=== PATIENT | male | born 1955 | race African-American/Black ===

== ENCOUNTER 2021-11-15 05:53 | Inpatient (IN) ==
[2021-09-22 13:04] LABS: Basophils # 0.1 10*3/uL (0.0-0.2); Basophils % 0.6 % (0.0-0.8); Eosinophils # 0.9 10*3/uL (0.0-0.87); Eosinophils % 8.7 % (0.00-10.9); Hematocrit 34.2 VOL% (42.0-52.0); Hemoglobin 10.9 GM/DL (14.0-18.0); Immature Granulocytes % 0.7 %; Immature Granulocytes Absolute 0.07 #; Lymphocytes # 3.1 10*3/uL (1.4-4.0); Lymphocytes % 30.3 % (21.2-54.2); Mean Corpuscular HGB Conc 31.9 GM/DL (32-36); Mean Corpuscular Volume 96.3 FL (87-102); Mean Platelet Volume 11.4 FL (9.6-12.0); Neutrophils % 52.7 % (38.7-73.9); Platelet Count 234 T/CUMM (130-400); Red Blood Count 3.55 MC/CUMM (3.8-5.5); Red Cell Distribution Width 12.7 % (9.3-17.3); White Blood Count 10.3 T/CUMM (4-12)
[2021-09-22 13:27] LABS: Alanine Aminotransferase 27 U/L (16-61); Albumin 3.8 G/DL (3.4-5.0); Alkaline Phosphatase 70 U/L (45-117); Aspartate Amino Transferase 22 U/L (0-37); Bilirubin,Total < 0.39 MG/DL (0.20-1.00); Blood Urea Nitrogen 32 MG/DL (7-18); Calcium 9.5 MG/DL (8.5-10.1); Carbon Dioxide 27 MMOL/L (21-32); Estimated Glom Filtration Rate 97 ML/MIN; Glucose 89 MG/DL (74-106); Osmolality,Calculated 282.5 MOS/KG (273-304); Sodium 139 MMOL/L (136-145); Total Protein 8.6 G/DL (6.4-8.2)
[2021-11-07 11:11] LABS: Basophils % 0.3 % (0.0-0.8); Eosinophils # 0.4 10*3/uL (0.0-0.87); Eosinophils % 3.5 % (0.00-10.9); Hematocrit 34.7 VOL% (42.0-52.0); Hemoglobin 10.9 GM/DL (14.0-18.0); Immature Granulocytes % 0.7 %; Immature Granulocytes Absolute 0.08 #; Lymphocytes # 3.1 10*3/uL (1.4-4.0); Lymphocytes % 26.5 % (21.2-54.2); Mean Corpuscular HGB Conc 31.4 GM/DL (32-36); Mean Corpuscular Volume 95.6 FL (87-102); Mean Platelet Volume 10.9 FL (9.6-12.0); Monocytes % 7.9 % (1.7-12.7); Neutrophils % 61.1 % (38.7-73.9); Platelet Count 229 T/CUMM (130-400); Red Blood Count 3.63 MC/CUMM (3.8-5.5); Red Cell Distribution Width 13.2 % (9.3-17.3); White Blood Count 11.5 T/CUMM (4-12)
[2021-11-07 11:29] LABS: Alanine Aminotransferase 31 U/L (16-61); Albumin 3.4 G/DL (3.4-5.0); Alkaline Phosphatase 91 U/L (45-117); Aspartate Amino Transferase 17 U/L (0-37); Bilirubin,Total < 0.39 MG/DL (0.20-1.00); Blood Urea Nitrogen 25 MG/DL (7-18); Calcium 9.3 MG/DL (8.5-10.1); Carbon Dioxide 29 MMOL/L (21-32); Estimated Glom Filtration Rate 124 ML/MIN; Glucose 98 MG/DL (74-106); Osmolality,Calculated 280.5 MOS/KG (273-304); Potassium 4.6 MMOL/L (3.5-5.1); Sodium 139 MMOL/L (136-145); Total Protein 8.1 G/DL (6.4-8.2)
[~2021-11-15 05:53] MED LIST: ACETAMINOPHEN 500 MG TABLET PO ONE; FAMOTIDINE 20 MG TABLET PO ONE; GABAPENTIN 400 MG CAPSULE PO ONE; cefTRIAXone 1,000 MG in SODIUM CHLORIDE 0.9% 100 ML IV ONE
[2021-11-15] MEDS ORDERED: DEXAMETHASONE 4 MG/1 ML VIAL ONE ×2 (06:35→06:56)
[2021-11-15] MEDS ORDERED: ONDANSETRON 4 MG/2 ML VIAL ONE (06:35)
[2021-11-15] MEDS ORDERED: MIDAZOLAM 2 MG/2 ML VIAL ONE (06:35)
[2021-11-15] MEDS ORDERED: fentaNYL 100 MCG/2 ML VIAL ONE (06:35)
[2021-11-15] MEDS ORDERED: LIDOCAINE 2% 5 ML VIAL ONE (06:35)
[2021-11-15] MEDS ORDERED: ROCURONIUM 50 MG/5 ML VIAL IV ONE ×2 (06:35→11:49)
[2021-11-15] MEDS ORDERED: propofoL 200 MG/20 ML VIAL IV ONE (06:35)
[2021-11-15] MEDS ORDERED: ROPIVACAINE 0.5% 30 ML VIAL ONE ×2 (06:38→06:53)
[2021-11-15] MEDS: LACTATED RINGERS 1,000 ML IV SCH (06:53)
[2021-11-15] MEDS: ALVIMOPAN 12 MG CAPSULE PO SCH ×3 (06:55→20:44)
[2021-11-15] MEDS ORDERED: cefTRIAXone 1,000 MG in SODIUM CHLORIDE 0.9% 100 ML IV ONE (07:00)
[2021-11-15] MEDS ORDERED: FAMOTIDINE 20 MG TABLET PO ONE (07:00)
[2021-11-15] MEDS ORDERED: GABAPENTIN 400 MG CAPSULE PO ONE (07:00)
[2021-11-15] MEDS ORDERED: ePHEDrine 50 MG/ML VIAL ONE (08:05)
[2021-11-15 09:38] LABS: Bilirubin,Urine Negative (Negative); Blood, Urine Negative (Negative); Glucose,Urine (UA) Negative (Negative); Ketones,Urine Negative (Negative); Nitrite,Urine Negative (Negative); Protein,Urine Negative; Urine Appearance CLEAR (Clear); Urine Color Yellow (Yellow); Urine Specific Gravity 1.015 (1.001-1.035); Urine Urobilinogen < 2.0 EU/DL (<2.0)
[2021-11-15] MEDS ORDERED: GLYCOPYRROLATE 0.4 MG/2 ML VIAL ONE (11:49)
[2021-11-15] MEDS ORDERED: NEOSTIGMINE 10 MG/10 ML VIAL ONE (11:49)
[2021-11-15] MEDS ORDERED: SEVOFLURANE 1 UNIT/15 MINUTE INH ONE ×5 (11:50→12:54)
[2021-11-15] MEDS ORDERED: oxyCODONE/ACETAMINOPHEN 5-325 MG TABLET PO PRN (12:48)
[2021-11-15] MEDS ORDERED: PROMETHAZINE 25 MG/1 ML VIAL IM PRN (12:48)
[2021-11-15] MEDS ORDERED: diphenhydrAMINE 50 MG/1 ML VIAL IV PRN (12:48)
[2021-11-15] MEDS ORDERED: HYDROmorphone 2 MG/1 ML VIAL IV PRN ×2 (12:48→13:11)
[2021-11-15] MEDS ORDERED: MAGNESIUM HYDROXIDE SUSP 30 ML UDCUP PO PRN (12:48)
[2021-11-15] MEDS ORDERED: ONDANSETRON 4 MG/2 ML VIAL IV PRN ×2 (12:48→13:11)
[2021-11-15] MEDS ORDERED: ALBUTEROL/IPRATROPIUM 3 ML NEB RESP TX PRN (12:51)
[2021-11-15] MEDS: SODIUM CHLORIDE 0.9% 1,000 ML IV SCH ×3 (14:15→23:40)
[2021-11-15] MEDS ORDERED: ALBUTEROL 2.5 MG/3 ML NEB RESP TX PRN (14:23)
[2021-11-15] MEDS ORDERED: FUROSEMIDE 20 MG/2 ML VIAL IV ONE (15:26)
[2021-11-15 15:36] LABS: Basophils % 0.2 % (0.0-0.8); Eosinophils % 0.1 % (0.00-10.9); Hematocrit 37.4 VOL% (42.0-52.0); Hemoglobin 11.3 GM/DL (14.0-18.0); Immature Granulocytes % 1.1 %; Immature Granulocytes Absolute 0.21 #; Lymphocytes # 1.7 10*3/uL (1.4-4.0); Lymphocytes % 8.8 % (21.2-54.2); Mean Corpuscular HGB Conc 30.2 GM/DL (32-36); Mean Corpuscular Volume 98.4 FL (87-102); Mean Platelet Volume 11.1 FL (9.6-12.0); Monocytes % 3.3 % (1.7-12.7); Neutrophils % 86.5 % (38.7-73.9); Platelet Count 212 T/CUMM (130-400); Red Cell Distribution Width 13.3 % (9.3-17.3); White Blood Count 18.8 T/CUMM (4-12)
[2021-11-15 15:52] LABS: Calcium 9.1 MG/DL (8.5-10.1); Potassium 5.5 MMOL/L (3.5-5.1)
[2021-11-15] MEDS: ALBUTEROL/IPRATROPIUM 3 ML NEB RESP TX SCH ×3 (16:05→23:34)
[2021-11-15] MEDS: ACETAMINOPHEN 325 MG TABLET PO SCH ×2 (16:26→19:29)
[2021-11-15] MEDS: OXYBUTYNIN 5 MG TABLET PO SCH ×2 (16:51→20:44)
[2021-11-15] MEDS: FAMOTIDINE 20 MG TABLET PO SCH (20:44)
[2021-11-15] MEDS: DOCUSATE SODIUM 100 MG CAPSULE PO SCH (20:44)
[2021-11-16] MEDS: ACETAMINOPHEN 325 MG TABLET PO SCH ×4 (01:39→20:12)
[2021-11-16] MEDS: ALBUTEROL/IPRATROPIUM 3 ML NEB RESP TX SCH ×6 (03:28→23:17)
[2021-11-16 04:46] LABS: Basophils % 0.1 % (0.0-0.8); Eosinophils % 0.1 % (0.00-10.9); Immature Granulocytes % 0.8 %; Immature Granulocytes Absolute 0.15 #; Lymphocytes # 2.6 10*3/uL (1.4-4.0); Lymphocytes % 13.1 % (21.2-54.2); Mean Corpuscular HGB Conc 31.3 GM/DL (32-36); Mean Corpuscular Volume 96.4 FL (87-102); Mean Platelet Volume 10.5 FL (9.6-12.0); Monocytes % 8.7 % (1.7-12.7); Neutrophils % 77.2 % (38.7-73.9); Platelet Count 255 T/CUMM (130-400); Red Blood Count 3.32 MC/CUMM (3.8-5.5); Red Cell Distribution Width 13.4 % (9.3-17.3); White Blood Count 19.5 T/CUMM (4-12)
[2021-11-16 05:10] LABS: Calcium 8.8 MG/DL (8.5-10.1); Osmolality,Calculated 276.8 MOS/KG (273-304); Potassium 4.5 MMOL/L (3.5-5.1)
[2021-11-16] MEDS: SODIUM CHLORIDE 0.9% 1,000 ML IV SCH (05:28)
[2021-11-16] MEDS: LACTATED RINGERS 1,000 ML IV SCH (05:36)
[2021-11-16] MEDS: FAMOTIDINE 20 MG TABLET PO SCH ×2 (08:52→20:12)
[2021-11-16] MEDS: ALVIMOPAN 12 MG CAPSULE PO SCH ×2 (08:52→20:11)
[2021-11-16] MEDS: amLODIPine 10 MG TABLET PO SCH (08:52)
[2021-11-16] MEDS: DOCUSATE SODIUM 100 MG CAPSULE PO SCH ×2 (08:52→20:12)
[2021-11-16] MEDS: OXYBUTYNIN 5 MG TABLET PO SCH ×3 (08:52→20:12)
[2021-11-16] MEDS: carvediloL 6.25 MG TABLET PO SCH ×2 (08:55→20:12)
[2021-11-16] MEDS ORDERED: lisinopriL 20 MG TABLET PO SCH (09:00)
[2021-11-16] MEDS ORDERED: cefTRIAXone 1,000 MG in SODIUM CHLORIDE 0.9% 100 ML IV SCH (13:00)
[2021-11-17] MEDS: ACETAMINOPHEN 325 MG TABLET PO SCH ×2 (01:52→06:05)
[2021-11-17 05:45] LABS: Basophils % 0.3 % (0.0-0.8); Eosinophils # 0.3 10*3/uL (0.0-0.87); Eosinophils % 2.5 % (0.00-10.9); Hematocrit 31.8 VOL% (42.0-52.0); Hemoglobin 9.8 GM/DL (14.0-18.0); Immature Granulocytes % 0.6 %; Immature Granulocytes Absolute 0.08 #; Lymphocytes % 21.9 % (21.2-54.2); Mean Corpuscular HGB Conc 30.8 GM/DL (32-36); Mean Corpuscular Volume 96.7 FL (87-102); Mean Platelet Volume 10.9 FL (9.6-12.0); Monocytes % 9.2 % (1.7-12.7); Neutrophils % 65.5 % (38.7-73.9); Platelet Count 241 T/CUMM (130-400); Red Blood Count 3.29 MC/CUMM (3.8-5.5); Red Cell Distribution Width 13.3 % (9.3-17.3); White Blood Count 13.9 T/CUMM (4-12)
[2021-11-17 05:58] LABS: Calcium 8.9 MG/DL (8.5-10.1); Potassium 4.4 MMOL/L (3.5-5.1)
[2021-11-17] MEDS: ALBUTEROL/IPRATROPIUM 3 ML NEB RESP TX SCH (07:15)
[2021-11-17 08:27] VITALS: BP 126/64
[2021-11-17] MEDS: carvediloL 6.25 MG TABLET PO SCH (09:40)
[2021-11-17] MEDS: amLODIPine 10 MG TABLET PO SCH (09:40)
[2021-11-17] MEDS: DOCUSATE SODIUM 100 MG CAPSULE PO SCH (09:40)
[2021-11-17] MEDS: ALVIMOPAN 12 MG CAPSULE PO SCH (09:40)
[2021-11-17] MEDS: OXYBUTYNIN 5 MG TABLET PO SCH (09:40)
[2021-11-17] MEDS: FAMOTIDINE 20 MG TABLET PO SCH (09:40)
== END 2021-11-17 11:15 | disposition home or self-care (01) | DRG 708 ==
LOC: N.OR 05:53 → N.SDSINP 05:55 → N.3E 14:15
PROVIDERS: ADMIT Surgery; ATTEND Surgery

== ENCOUNTER 2021-12-05 00:05 | Inpatient (IN) ==
[2021-12-05 08:01] LABS: Basophils % 0.2 % (0.0-0.8); Eosinophils % 0.5 % (0.00-10.9); Hematocrit 33.4 VOL% (42.0-52.0); Hemoglobin 10.7 GM/DL (14.0-18.0); Immature Granulocytes % 0.5 %; Immature Granulocytes Absolute 0.03 #; Lymphocytes # 1.4 10*3/uL (1.4-4.0); Lymphocytes % 21.5 % (21.2-54.2); Neutrophils % 68.3 % (38.7-73.9); Platelet Count 234 T/CUMM (130-400); Red Blood Count 3.63 MC/CUMM (3.8-5.5); Red Cell Distribution Width 12.9 % (9.3-17.3); White Blood Count 6.5 T/CUMM (4-12)
[2021-12-05 08:05] LABS: Bilirubin,Urine Negative (Negative); Blood, Urine Moderate mg/dL (Negative); Glucose,Urine (UA) Negative (Negative); Ketones,Urine 20 mg/dL (Negative); Mucus,Urine Occasional /LPF (Occasional); Nitrite,Urine Negative (Negative); Protein,Urine 100 MG/DL; RBC,Urine 16 /HPF (0-4); Squamous Epithelial Cell,Urine Occasional /HPF (0-10); Urine Appearance CLEAR (Clear); Urine Color Yellow (Yellow); Urine Specific Gravity 1.018 (1.001-1.035)
[2021-12-05 08:19] LABS: Barbiturates Screen,Urine Negative (Negative); Benzodiazepines Screen,Urine Negative (Negative); Cannabinoid Screen,Urine Negative (Negative); Opiate Screen,Urine Negative (Negative); Phencyclidine Screen,Urine Negative (Negative)
[2021-12-05 08:26] LABS: Albumin 3.2 G/DL (3.4-5.0); Bilirubin,Total 0.5 MG/DL (0.20-1.00); Calcium 9.4 MG/DL (8.5-10.1); Osmolality,Calculated 269.1 MOS/KG (273-304); Potassium 3.8 MMOL/L (3.5-5.1); Total Protein 9.3 G/DL (6.4-8.2)
[2021-12-05] MEDS ORDERED: ACETAMINOPHEN 325 MG TABLET PO PRN (10:00)
[2021-12-05] MEDS ORDERED: hydrALAZINE 20 MG/1 ML VIAL IV PRN (10:00)
[2021-12-05] MEDS ORDERED: ONDANSETRON 4 MG/2 ML VIAL IV PRN (10:00)
[2021-12-05] MEDS ORDERED: DEXTROSE 10% 250 ML BAG IV PRN (10:00)
[2021-12-05] MEDS ORDERED: GLUCAGON 1 MG VIAL IM PRN (10:00)
[2021-12-05] MEDS ORDERED: ZIPRASIDONE 20 MG/1 ML VIAL IM ONE (10:55)
[2021-12-05 11:09] LABS: Ferritin 657.5 ng/mL (26-388)
[2021-12-05 11:51] LABS: % Iron Saturation 12.1 % (18-50)
[2021-12-05] MEDS ORDERED: ZIPRASIDONE 20 MG/1 ML VIAL IM STA (11:54)
[2021-12-05] MEDS ORDERED: HALOPERIDOL 5 MG/ML AMP IM STA (12:08)
[2021-12-05] MEDS ORDERED: LORazepam 2 MG/1 ML VIAL IM STA (12:08)
[2021-12-05] MEDS ORDERED: diphenhydrAMINE 50 MG/1 ML VIAL IM STA (12:08)
[2021-12-05 12:15] LABS: Folate 17.88 NG/ML (5.38-24.0)
[2021-12-05] MEDS ORDERED: ALBUTEROL 2.5 MG/3 ML NEB RESP TX PRN (13:00)
[2021-12-05] MEDS: ENOXAPARIN 40 MG/0.4 ML SYRINGE SUBCUT SCH (13:30)
[2021-12-05] MEDS: cefTRIAXone 1,000 MG in SODIUM CHLORIDE 0.9% 100 ML IV SCH (13:30)
[2021-12-05] MEDS: HALOPERIDOL 5 MG/ML AMP IM PRN (19:41)
[2021-12-05] MEDS: ZIPRASIDONE 20 MG/1 ML VIAL IM PRN (19:41)
[2021-12-05] MEDS: DOCUSATE SODIUM 100 MG CAPSULE PO SCH (21:19)
[2021-12-05] MEDS: FAMOTIDINE 20 MG TABLET PO SCH (21:20)
[2021-12-05] MEDS: carvediloL 6.25 MG TABLET PO SCH (21:20)
[2021-12-05] MEDS: ASCORBIC ACID 500 MG TABLET PO SCH (21:20)
[2021-12-06 04:05] LABS: Basophils % 0.4 % (0.0-0.8); Eosinophils # 0.2 10*3/uL (0.0-0.87); Eosinophils % 3.5 % (0.00-10.9); Hematocrit 33.7 VOL% (42.0-52.0); Hemoglobin 10.5 GM/DL (14.0-18.0); Immature Granulocytes % 0.6 %; Immature Granulocytes Absolute 0.04 #; Lymphocytes # 2.5 10*3/uL (1.4-4.0); Lymphocytes % 35.5 % (21.2-54.2); Mean Corpuscular HGB Conc 31.2 GM/DL (32-36); Mean Corpuscular Volume 91.8 FL (87-102); Mean Platelet Volume 10.7 FL (9.6-12.0); Monocytes % 8.5 % (1.7-12.7); Neutrophils % 51.5 % (38.7-73.9); Platelet Count 280 T/CUMM (130-400); Red Blood Count 3.67 MC/CUMM (3.8-5.5); Red Cell Distribution Width 12.9 % (9.3-17.3); White Blood Count 6.9 T/CUMM (4-12)
[2021-12-06] MEDS: HALOPERIDOL 5 MG/ML AMP IM PRN ×2 (04:14→11:42)
[2021-12-06 04:29] LABS: Albumin 3.2 G/DL (3.4-5.0); Bilirubin,Total 1.3 MG/DL (0.20-1.00); Ferritin 674.8 ng/mL (26-388); Osmolality,Calculated 278.3 MOS/KG (273-304); Potassium 3.9 MMOL/L (3.5-5.1); Risk Ratio 4.74; Total Protein 9.2 G/DL (6.4-8.2); VLDL Cholesterol 18.8 MG/DL
[2021-12-06] MEDS: ZIPRASIDONE 20 MG/1 ML VIAL IM PRN ×2 (07:51→21:30)
[2021-12-06] MEDS ORDERED: LORazepam 2 MG/1 ML VIAL IV ONE (08:12)
[2021-12-06] MEDS ORDERED: lisinopriL 20 MG TABLET PO SCH (09:00)
[2021-12-06] MEDS: DOCUSATE SODIUM 100 MG CAPSULE PO SCH ×2 (09:26→21:30)
[2021-12-06] MEDS: carvediloL 6.25 MG TABLET PO SCH ×2 (09:45→21:30)
[2021-12-06] MEDS: amLODIPine 10 MG TABLET PO SCH (09:45)
[2021-12-06] MEDS: DEXAMETHASONE 4 MG/1 ML VIAL IV SCH (09:45)
[2021-12-06] MEDS: FAMOTIDINE 20 MG TABLET PO SCH ×2 (09:45→21:30)
[2021-12-06] MEDS: PANTOPRAZOLE 40 MG TABLET PO SCH (09:45)
[2021-12-06] MEDS: ZINC GLUCONATE 50 MG TABLET PO SCH (09:55)
[2021-12-06] MEDS: CHOLECALCIFEROL 1,000 UNIT TABLET PO SCH (09:55)
[2021-12-06] MEDS: ASCORBIC ACID 500 MG TABLET PO SCH ×2 (09:55→21:30)
[2021-12-06] MEDS: ENOXAPARIN 40 MG/0.4 ML SYRINGE SUBCUT SCH (11:35)
[2021-12-06] MEDS: cefTRIAXone 1,000 MG in SODIUM CHLORIDE 0.9% 100 ML IV SCH (11:43)
[2021-12-06] MEDS ORDERED: LORazepam 2 MG/1 ML VIAL ONE (16:43)
[2021-12-06] MEDS: FERROUS SULFATE 325 MG TABLET PO SCH (21:30)
[2021-12-07] MEDS: HALOPERIDOL 5 MG/ML AMP IM PRN ×2 (01:23→08:13)
[2021-12-07] MEDS ORDERED: LORazepam 2 MG/1 ML VIAL IM ONE (02:26)
[2021-12-07] MEDS ORDERED: LORazepam 2 MG/1 ML VIAL ONE (02:27)
[2021-12-07] MEDS ORDERED: LORazepam 2 MG/1 ML VIAL IV ONE (02:27)
[2021-12-07] MEDS ORDERED: SODIUM CHLORIDE 0.9% 500 ML IV ONE (03:35)
[2021-12-07 04:05] LABS: Basophils % 0.1 % (0.0-0.8); Eosinophils % 0.1 % (0.00-10.9); Hematocrit 31.3 VOL% (42.0-52.0); Hemoglobin 10.1 GM/DL (14.0-18.0); Immature Granulocytes % 1.4 %; Immature Granulocytes Absolute 0.12 #; Lymphocytes # 1.5 10*3/uL (1.4-4.0); Lymphocytes % 17.2 % (21.2-54.2); Mean Corpuscular HGB Conc 32.3 GM/DL (32-36); Mean Corpuscular Volume 92.1 FL (87-102); Mean Platelet Volume 10.7 FL (9.6-12.0); Monocytes % 8.4 % (1.7-12.7); Neutrophils % 72.8 % (38.7-73.9); Platelet Count 297 T/CUMM (130-400); Red Cell Distribution Width 13.2 % (9.3-17.3); White Blood Count 8.5 T/CUMM (4-12)
[2021-12-07 04:34] LABS: Albumin 2.9 G/DL (3.4-5.0); Bilirubin,Total 0.5 MG/DL (0.20-1.00); Calcium 8.8 MG/DL (8.5-10.1); Osmolality,Calculated 283.3 MOS/KG (273-304); Total Protein 8.4 G/DL (6.4-8.2)
[2021-12-07] MEDS ORDERED: SODIUM CHLORIDE 0.9% 1,000 ML IV SCH (08:30)
[2021-12-07] MEDS: amLODIPine 10 MG TABLET PO SCH (10:00)
[2021-12-07] MEDS: DOCUSATE SODIUM 100 MG CAPSULE PO SCH ×2 (10:06→21:55)
[2021-12-07] MEDS: ASCORBIC ACID 500 MG TABLET PO SCH ×2 (10:13→21:55)
[2021-12-07] MEDS: FERROUS SULFATE 325 MG TABLET PO SCH ×2 (10:13→21:53)
[2021-12-07] MEDS: carvediloL 6.25 MG TABLET PO SCH ×2 (10:13→21:53)
[2021-12-07] MEDS: FAMOTIDINE 20 MG TABLET PO SCH ×2 (10:14→21:53)
[2021-12-07] MEDS: CHOLECALCIFEROL 1,000 UNIT TABLET PO SCH (10:14)
[2021-12-07] MEDS: PANTOPRAZOLE 40 MG TABLET PO SCH (10:14)
[2021-12-07] MEDS: ZINC GLUCONATE 50 MG TABLET PO SCH (10:14)
[2021-12-07] MEDS: DEXAMETHASONE 4 MG/1 ML VIAL IV SCH (10:15)
[2021-12-07] MEDS: cefTRIAXone 1,000 MG in SODIUM CHLORIDE 0.9% 100 ML IV SCH (10:17)
[2021-12-07] MEDS: ENOXAPARIN 40 MG/0.4 ML SYRINGE SUBCUT SCH ×3 (10:17→10:33)
[2021-12-07] MEDS: HALOPERIDOL 1 MG TABLET PO SCH (21:54)
[2021-12-07] MEDS: ESCITALOPRAM 10 MG TABLET PO SCH (21:55)
[2021-12-08] MEDS ORDERED: LORazepam 2 MG/1 ML VIAL IV ONE ×2 (00:51→22:41)
[2021-12-08] MEDS: HALOPERIDOL 5 MG/ML AMP IM PRN (05:08)
[2021-12-08 08:45] LABS: Basophils % 0.2 % (0.0-0.8); Eosinophils % 0.2 % (0.00-10.9); Hematocrit 31.9 VOL% (42.0-52.0); Hemoglobin 10.4 GM/DL (14.0-18.0); Immature Granulocytes % 0.9 %; Immature Granulocytes Absolute 0.11 #; Lymphocytes # 3.1 10*3/uL (1.4-4.0); Lymphocytes % 24.1 % (21.2-54.2); Mean Corpuscular HGB Conc 32.6 GM/DL (32-36); Mean Corpuscular Volume 90.6 FL (87-102); Mean Platelet Volume 10.1 FL (9.6-12.0); Monocytes % 9.6 % (1.7-12.7); Platelet Count 328 T/CUMM (130-400); Red Blood Count 3.52 MC/CUMM (3.8-5.5); Red Cell Distribution Width 13.2 % (9.3-17.3); White Blood Count 12.7 T/CUMM (4-12)
[2021-12-08 09:05] LABS: Calcium 8.7 MG/DL (8.5-10.1); Osmolality,Calculated 283.5 MOS/KG (273-304); Potassium 3.7 MMOL/L (3.5-5.1)
[2021-12-08] MEDS: DOCUSATE SODIUM 100 MG CAPSULE PO SCH ×2 (10:17→20:35)
[2021-12-08] MEDS: carvediloL 6.25 MG TABLET PO SCH ×2 (10:17→20:35)
[2021-12-08] MEDS: amLODIPine 10 MG TABLET PO SCH (10:18)
[2021-12-08] MEDS: DEXAMETHASONE 4 MG/1 ML VIAL IV SCH (10:18)
[2021-12-08] MEDS: ZINC GLUCONATE 50 MG TABLET PO SCH (10:18)
[2021-12-08] MEDS: PANTOPRAZOLE 40 MG TABLET PO SCH (10:18)
[2021-12-08] MEDS: FERROUS SULFATE 325 MG TABLET PO SCH ×2 (10:18→20:35)
[2021-12-08] MEDS: ASCORBIC ACID 500 MG TABLET PO SCH ×2 (10:18→20:35)
[2021-12-08] MEDS: FAMOTIDINE 20 MG TABLET PO SCH ×2 (10:18→20:35)
[2021-12-08] MEDS: CHOLECALCIFEROL 1,000 UNIT TABLET PO SCH (10:18)
[2021-12-08] MEDS: cefTRIAXone 1,000 MG in SODIUM CHLORIDE 0.9% 100 ML IV SCH (10:19)
[2021-12-08] MEDS: LACTATED RINGERS 1,000 ML IV SCH (11:44)
[2021-12-08] MEDS: ESCITALOPRAM 10 MG TABLET PO SCH (20:35)
[2021-12-08] MEDS: HALOPERIDOL 1 MG TABLET PO SCH (20:35)
[2021-12-09] MEDS: LACTATED RINGERS 1,000 ML IV SCH ×3 (01:16→18:20)
[2021-12-09 06:33] LABS: Basophils % 0.3 % (0.0-0.8); Eosinophils # 0.2 10*3/uL (0.0-0.87); Eosinophils % 2.4 % (0.00-10.9); Hematocrit 32.2 VOL% (42.0-52.0); Hemoglobin 10.4 GM/DL (14.0-18.0); Immature Granulocytes % 0.9 %; Immature Granulocytes Absolute 0.08 #; Lymphocytes # 2.7 10*3/uL (1.4-4.0); Lymphocytes % 29.3 % (21.2-54.2); Mean Corpuscular HGB Conc 32.3 GM/DL (32-36); Mean Corpuscular Volume 91.5 FL (87-102); Mean Platelet Volume 10.1 FL (9.6-12.0); Monocytes % 10.7 % (1.7-12.7); Neutrophils % 56.4 % (38.7-73.9); Platelet Count 308 T/CUMM (130-400); Red Blood Count 3.52 MC/CUMM (3.8-5.5); White Blood Count 9.2 T/CUMM (4-12)
[2021-12-09 07:00] LABS: Calcium 9.3 MG/DL (8.5-10.1); Osmolality,Calculated 276.7 MOS/KG (273-304); Potassium 3.6 MMOL/L (3.5-5.1)
[2021-12-09 07:11] LABS: Ferritin 547.9 ng/mL (26-388)
[2021-12-09] MEDS: FERROUS SULFATE 325 MG TABLET PO SCH ×2 (11:16→20:00)
[2021-12-09] MEDS: FAMOTIDINE 20 MG TABLET PO SCH ×2 (11:16→20:00)
[2021-12-09] MEDS: ZINC GLUCONATE 50 MG TABLET PO SCH (11:16)
[2021-12-09] MEDS: ASCORBIC ACID 500 MG TABLET PO SCH ×2 (11:16→20:00)
[2021-12-09] MEDS: PANTOPRAZOLE 40 MG TABLET PO SCH (11:16)
[2021-12-09] MEDS: amLODIPine 10 MG TABLET PO SCH (11:16)
[2021-12-09] MEDS: carvediloL 6.25 MG TABLET PO SCH ×2 (11:16→20:00)
[2021-12-09] MEDS: CHOLECALCIFEROL 1,000 UNIT TABLET PO SCH (11:16)
[2021-12-09] MEDS: DOCUSATE SODIUM 100 MG CAPSULE PO SCH ×2 (11:16→20:00)
[2021-12-09] MEDS: DEXAMETHASONE 4 MG/1 ML VIAL IV SCH (11:17)
[2021-12-09] MEDS: cefTRIAXone 1,000 MG in SODIUM CHLORIDE 0.9% 100 ML IV SCH (11:17)
[2021-12-09] MEDS: HALOPERIDOL 1 MG TABLET PO SCH (20:00)
[2021-12-09] MEDS: ESCITALOPRAM 10 MG TABLET PO SCH (20:00)
[2021-12-10] MEDS ORDERED: MELATONIN 3 MG TABLET PO PRN (00:29)
[2021-12-10] MEDS ORDERED: LORazepam 2 MG/1 ML VIAL IV PRN (02:35)
[2021-12-10] MEDS: LACTATED RINGERS 1,000 ML IV SCH (05:45)
[2021-12-10 05:53] LABS: Basophils % 0.1 % (0.0-0.8); Eosinophils # 0.1 10*3/uL (0.0-0.87); Eosinophils % 0.4 % (0.00-10.9); Hematocrit 28.7 VOL% (42.0-52.0); Hemoglobin 9.3 GM/DL (14.0-18.0); Immature Granulocytes Absolute 0.11 #; Lymphocytes # 3.2 10*3/uL (1.4-4.0); Lymphocytes % 28.2 % (21.2-54.2); Mean Corpuscular HGB Conc 32.4 GM/DL (32-36); Mean Corpuscular Volume 90.8 FL (87-102); Monocytes % 10.8 % (1.7-12.7); Neutrophils % 59.5 % (38.7-73.9); Platelet Count 324 T/CUMM (130-400); Red Blood Count 3.16 MC/CUMM (3.8-5.5); Red Cell Distribution Width 13.1 % (9.3-17.3); White Blood Count 11.4 T/CUMM (4-12)
[2021-12-10 06:11] LABS: Calcium 8.7 MG/DL (8.5-10.1); Osmolality,Calculated 277.5 MOS/KG (273-304); Potassium 3.6 MMOL/L (3.5-5.1)
[2021-12-10] MEDS ORDERED: MAGNESIUM SULF RIDER 2 GM/50 ML PREMIX IV ONE (07:21)
[2021-12-10] MEDS: amLODIPine 10 MG TABLET PO SCH (10:16)
[2021-12-10] MEDS: DOCUSATE SODIUM 100 MG CAPSULE PO SCH ×2 (10:16→22:10)
[2021-12-10] MEDS: carvediloL 6.25 MG TABLET PO SCH ×2 (10:16→22:10)
[2021-12-10] MEDS: CHOLECALCIFEROL 1,000 UNIT TABLET PO SCH (10:16)
[2021-12-10] MEDS: ASCORBIC ACID 500 MG TABLET PO SCH ×2 (10:16→22:10)
[2021-12-10] MEDS: PANTOPRAZOLE 40 MG TABLET PO SCH (10:16)
[2021-12-10] MEDS: ZINC GLUCONATE 50 MG TABLET PO SCH (10:16)
[2021-12-10] MEDS: FAMOTIDINE 20 MG TABLET PO SCH ×2 (10:17→22:10)
[2021-12-10] MEDS: DEXAMETHASONE 4 MG/1 ML VIAL IV SCH (10:17)
[2021-12-10] MEDS: FERROUS SULFATE 325 MG TABLET PO SCH ×2 (10:17→22:10)
[2021-12-10] MEDS: HALOPERIDOL 1 MG TABLET PO SCH (22:10)
[2021-12-10] MEDS: ESCITALOPRAM 10 MG TABLET PO SCH (22:10)
[2021-12-11 06:05] LABS: Calcium 9.3 MG/DL (8.5-10.1); Potassium 3.4 MMOL/L (3.5-5.1)
[2021-12-11] MEDS: LACTATED RINGERS 1,000 ML IV SCH ×3 (06:44→10:52)
[2021-12-11] MEDS ORDERED: POTASSIUM CHLORIDE 20 MEQ TABLET PO ONE (07:22)
[2021-12-11] MEDS ORDERED: predniSONE 20 MG TABLET PO SCH (09:00)
[2021-12-11] MEDS: DOCUSATE SODIUM 100 MG CAPSULE PO SCH (09:55)
[2021-12-11] MEDS: CHOLECALCIFEROL 1,000 UNIT TABLET PO SCH (09:55)
[2021-12-11] MEDS: ZINC GLUCONATE 50 MG TABLET PO SCH (09:55)
[2021-12-11] MEDS: FAMOTIDINE 20 MG TABLET PO SCH (09:55)
[2021-12-11] MEDS: PANTOPRAZOLE 40 MG TABLET PO SCH (09:55)
[2021-12-11] MEDS: FERROUS SULFATE 325 MG TABLET PO SCH (09:55)
[2021-12-11] MEDS: carvediloL 6.25 MG TABLET PO SCH (09:55)
[2021-12-11] MEDS: amLODIPine 10 MG TABLET PO SCH (09:56)
[2021-12-11] MEDS: ASCORBIC ACID 500 MG TABLET PO SCH (09:56)
[2021-12-11 12:39] VITALS: BP 149/84
== END 2021-12-11 14:45 | disposition home or self-care (01) | DRG 178 ==
LOC: N.ED 00:05 → N.EDINP 00:05 → SUATTDRO 13:33 → N.3E 12-07 13:37
PROVIDERS: ADMIT Internal Medicine; ATTEND Internal Medicine